=== PATIENT | female | born 1950 | race American Indian/Alaskan Native ===

== ENCOUNTER 2021-05-24 20:24 | Emergency (ER) | payer BC, OTHER ==
--- NOTE | 2021-05-24 20:34 | Emergency Department Report ---
ED CPR HPI - General Chief Complaint: Cardiac Arrest/CPR Stated Complaint: CARDIAC ARREST Time Seen by Provider: 05/24/21 20:34 Source: EMS (Verbal report received from emergency medical services. EMS documentation not available at time of chart dictation ), RN notes reviewed Mode of arrival: Stretcher Limitations: Altered Mental Status, Physical Limitation - History of Present Illness Initial Comments: The patient was evaluated in the emergency department for symptoms described in the history of present illness. He/she was evaluated in the context of the global COVID-19 pandemic, which necessitated consideration that the patient might be at risk for infection with the virus that causes COVID-19. Institutional protocols and algorithms that pertain to the evaluation of patients at risk for COVID-19 are in a state of rapid change based on information released by regulatory bodies including the CDC and federal and state organizations. These policies and algorithms were followed during the patient's care in the emergency department. Please note that these policies, procedures and recommendations changed on a rapid basis. The patient is a 71-year-old female. She is not known to myself previously. She is brought to the hospital by emergency medical services as an [id number] nontraumatic cardiac arrest. EMS states the patient became unresponsive at home. Family started CPR. EMS states the patient has been pulseless for at least 35 minutes. The patient has been in PEA or asystole. The patient has not had a shockable rhythm. EMS states normal Accu-Chek in the field. EMS provided high-quality CPR, intubated with an 8oh endotracheal tube, and gave 4 rounds of CPR. Upon arrival to this emergency room, patient continues to receive CPR, is intubated, with a GCS of 3T. She continues to receive high-quality CPR, and standard ACLS interventions, including medications. Unfortunately, pulses are not obtained, she remains in asystole, and transthoracic [id number] bedside ultrasound demonstrates no coordinated ventricular activity, and cardiac standstill. Pupils are dilated and do not react to light. Resuscitative efforts were terminated secondary to prolonged downtime, medical futility At the moment, patient is not accompanied by friends or family at this time. MD Complaint: stopped breathing -: minute(s) Place: home Bystander CPR Performed: Yes AED Applied by Bystander/Client Manager Large Law: No Initial Findings in the Field: no pulse ROSC in the Field: No Treatments Prior to Arrival: intubation, chest compressions, epinephrine mgs # - Related Data Allergies Allergy/AdvReac Type Severity Reaction Status Date / Time No Known Allergies Allergy Verified 07/06/16 08:33 ED Review of Systems ROS: Stated complaint: CARDIAC ARREST Other details as noted in HPI Comment: Unobtainable due to pts medical conditions ED Past Medical Hx - Past Medical History Hx Hypertension: Yes Hx Diabetes: Yes - Social History Smoking Status: Never Smoker Substance Use Type: None ED Physical Exam - General Limitations: Altered Mental Status General appearance: obtunded, other (GCS of 3T) - Head Head exam: Present: atraumatic, normocephalic - Eye Eye exam: Present: normal appearance, other (Pupils fixed and dilated) - ENT ENT exam: Present: normal exam, normal external ear exam, other (Endotracheal tube noted in the oropharynx) - Neck Neck exam: Present: normal inspection - Respiratory Respiratory exam: Present: other (No breath sounds unless [id number] ventilation is applied). Absent: normal lung sounds bilaterally - Cardiovascular Cardiovascular Exam: Present: other (Patient is pulseless) - GI/Abdominal GI/Abdominal exam: Present: soft - Extremities Exam Extremities exam: Present: normal inspection (Right lower extremity IO line note) - Back Exam Back exam: Present: normal inspection - Neurological Exam Neurological exam: Present: altered (Nonverbal, GCS of 3T) - Psychiatric Psychiatric exam: Present: other (The patient is nonverbal) - Skin Skin exam: Present: warm, dry, intact, normal color. Absent: rash ED Medical Decision Making - Medical Decision Making Differential diagnosis, including but not limited to: Acute coronary syndrome, pulmonary embolism, stroke, intracranial hemorrhage, hyperkalemia Critical care attestation.: If time is entered above; I have spent that time in minutes in the direct care of this critically ill patient, excluding procedure time. ED Disposition Clinical Impression: Cardiac arrest Disposition: DC-20 Is pt being admited?: No Does the pt Need Aspirin: No Condition: Undetermined
[2021-05-24] MEDS ORDERED: EPINEPHrine 1 MG/10 ML SYRINGE ONE (22:18)
== END 2021-05-25 06:05 ==
LOC: ED 20:24
DX: I46.9 Cardiac arrest, cause unspecified (principal); I10 Essential (primary) hypertension; E11.8 Type 2 diabetes mellitus with unspecified complications
CPT/HCPCS: 82962; 92950; 99285; J0171